=== PATIENT | female | born 1950 | race Caucasian/White ===

== ENCOUNTER 2021-02-07 20:04 | Emergency (ER) | payer MEDICARE ==
[2021-02-07] MEDS ORDERED: CEPHALEXIN500 M1 PO (21:20)
== END 2021-02-07 22:30 | disposition home or self-care (01) ==
LOC: ED 20:04
DX: S60.451A Superficial foreign body of left index finger, initial encounter (principal); X58.XXXA Exposure to other specified factors, initial encounter; Y93.89 Activity, other specified; Y92.89 Other specified places as the place of occurrence of the external cause; Y99.8 Other external cause status